=== PATIENT | female | born 1960 | race African-American/Black ===

== ENCOUNTER 2016-12-23 16:23 | Emergency (ER) | payer MEDICAID ==
[~2016-12-23] VITALS: Ht 177.8 cm; Wt 100.5 kg
[2016-12-23] MEDS ORDERED: FURO40 PO (16:58)
[2016-12-23] MEDS ORDERED: [UNRECOGNIZED DRUG - REMARK] PO (16:58)
[2016-12-23] MEDS ORDERED: ATOR40TA28 PO (16:58)
[2016-12-23] MEDS ORDERED: CLOP75 PO (16:58)
[2016-12-23] MEDS ORDERED: METO25 PO (16:58)
[2016-12-23] MEDS ORDERED: AMIO200T44 PO (17:26)
[2016-12-23] MEDS ORDERED: PERTUSS(ACELL),DIPH,TET VAC/PF 0.5 ML VIAL IM ONE (17:30)
[2016-12-23] MEDS ORDERED: IBUPROFEN 600 MG TABLET PO ONE (17:30)
[2016-12-23] MEDS ORDERED: HYDROCODONE/ACETAMINOPHEN 5-325 MG TABLET PO ONE (19:15)
[2016-12-23 19:23] VITALS: BP 135/79
== END 2016-12-23 19:34 | disposition home or self-care (01) ==
LOC: EMS 16:27
DX: S39.012A Strain of muscle, fascia and tendon of lower back, initial encounter (principal); S83.91XA Sprain of unspecified site of right knee, initial encounter; M13.861 Other specified arthritis, right knee; W19.XXXA Unspecified fall, initial encounter; Y93.89 Activity, other specified; Y92.89 Other specified places as the place of occurrence of the external cause; Y99.8 Other external cause status
CPT/HCPCS: 90471; 90715; 99284